=== PATIENT | female | born 1960 | race Two or more races ===

== ENCOUNTER 2024-09-22 23:18 | Emergency (ER) | payer MEDICAID ==
[~2024-09-22] VITALS: Ht 165.1 cm; Wt 53.0 kg
[2024-09-22 23:25] VITALS: TEMP 36.7; O2SAT 97
[2024-09-23] MEDS: ACETAMINOPHEN 500MG TABLET PO ONE (00:36)
[2024-09-23] MEDS ORDERED: LIDO-53 TP (01:06)
[2024-09-23] MEDS ORDERED: NAPR-1176 MT (01:06)
[2024-09-23 01:26] VITALS: BP 183/79; PULSE 70; RESP 18; O2SAT 96
== END 2024-09-23 01:42 | disposition home or self-care (01) ==
LOC: ER 23:30
DX: S09.8XXA Other specified injuries of head, initial encounter (principal); I10 Essential (primary) hypertension; Z79.1 Long term (current) use of non-steroidal anti-inflammatories (NSAID); Z88.5 Allergy status to narcotic agent; Z79.899 Other long term (current) drug therapy; X58.XXXA Exposure to other specified factors, initial encounter; Y93.89 Activity, other specified; Y92.89 Other specified places as the place of occurrence of the external cause; Y99.8 Other external cause status
CPT/HCPCS: 99284